=== PATIENT | female | born 1960 | race African-American/Black ===

== ENCOUNTER 2017-11-21 14:52 | Emergency (ER) | payer OTHER ==
[~2017-11-21] VITALS: Ht 162.6 cm; Wt 92.1 kg
--- NOTE | ~2017-11-21 | EKG ---
[place] [address] [facility] [place] [address] ELECTROCARDIOGRAM REPORT Name: MARTINSAI Lackey [id number] Admission: 11/21/17 Attend Phys: Discharge: 11/21/17 Date of : 64 Report #: [id number] THIS REPORT FOR: //name// [facility] ED Test Date: 2017-11-21 Test Time: 15:27:02 Pat Name: ROSETTA HODGE Department: Room: Gender: F Cancer Spec: Susana CRUZ : 1960 Requested By: Eduardo Bull Order Number: [id number] MD: Benny Cramer Measurements Intervals [place] Rate: 71 P: 56 MT: 164 QRS: 23 QRSD: 91 T: 30 QT: 380 QTc: 413 Interpretive Statements Sinus rhythm Multiple ventricular premature complexes Compared to ECG 10/04/2010 23:46:32 Ventricular premature complex(es) now present Electronically Signed On 11-22-2017 14:04:05 CDT by Benny Cramer [email or web address] <ELECTRONICALLY SIGNED> By: Benny Cramer MD, [facility] 11/22/17 1404 [id number] Benny Cramer MD, FACC /EPI
[~2017-11-21 14:52] MED LIST: AMOXICILLIN 50500 MG PO; CEPHALEXIN 500500 M2 PO; NORCO 5-325 TA1 EACH PO; PROVENTIL IN; SINGULAIR 10 MG10 M1 PO; ZYRTEC10 M2
[2017-11-21] MEDS ORDERED: SYMBICORT160 MCG/4. INH (15:03)
[2017-11-21 15:17] LABS: BASOPHILS 0.7 % (0.0-2.0); EOSINOPHILS 4.6 % (0.0-3.0); HEMOGLOBIN 12.4 gm/dL (12.0-15.0); LYMPHOCYTES 29.5 % (24.0-44.0); MCH 30.2 pg (26.0-34.0); MCHC 33.5 g/dL (28.0-37.0); MCV 90.3 fL (80.0-100.0); MONOCYTES 6.1 % (1.0-8.0); PLATELET COUNT 237 thou/uL (150-400); POLYS 59.1 % (36.0-66.0); RDW 13.1 % (10.5-14.5); WBC 6.8 thou/uL (4.0-11.0)
[2017-11-21 15:25] LABS: ANION GAP 5 mmol/L (7-16); BUN 7 mg/dL (7-18); CALCIUM 9.4 mg/dL (8.5-10.1); CHLORIDE 106 mmol/L (98-107); CO2 30 mmol/L (21-32); CREATININE 1.3 mg/dL (0.6-1.0); GLUCOSE 93 mg/dL (74-106); POTASSIUM 3.4 mmol/L (3.5-5.1); SODIUM 141 mmol/L (136-145)
[2017-11-21 15:33] LABS: TROPONIN-I < 0.04 ng/mL (<0.06)
== END 2017-11-21 16:27 | disposition home or self-care (01) ==
LOC: ER 14:52
PROVIDERS: Physician Assistant
DX: R07.89 Other chest pain (principal); J45.909 Unspecified asthma, uncomplicated; Z88.6 Allergy status to analgesic agent